=== PATIENT | male | born 1965 ===

== ENCOUNTER → 2017-09-01 | Outpatient (REF) | payer BC ==
[2017-09-03 00:06] LABS: Lyme Disease IgG/IgM Antibodie <0.91 ISR (0.00-0.90); Lyme Disease IgM Ab Quantitati <0.80 index (0.00-0.79)
== END ==
LOC: M LAB REF 12:14
PROVIDERS: ATTEND Physician Assistant
DX: S31.0 Open wound of lower back and pelvis (principal); X58.XXXA Exposure to other specified factors, initial encounter; Y92.9 Unspecified place or not applicable; Y93.9 Activity, unspecified